=== PATIENT | male | born 1985 | race Two or more races ===

== ENCOUNTER 2019-07-03 20:43 | Emergency (ER) | payer BC ==
[~2019-07-03] VITALS: Ht 180.3 cm; Wt 86.4 kg
[2019-07-03 20:58] VITALS: BP 136/94
[2019-07-03] MEDS ORDERED: DOCO2CRE4 TP (21:05)
== END 2019-07-03 22:00 | disposition left against medical advice (07) ==
LOC: EMS 20:43
DX: Z53.21 Procedure and treatment not carried out due to patient leaving prior to being seen by health care provider (principal)